=== PATIENT | female | born 1965 | race Caucasian/White ===

== ENCOUNTER 2022-03-22 00:18 | Emergency (ER) | payer MEDICAID ==
[~2022-03-22] VITALS: Ht 172.7 cm; Wt 109.5 kg
[~2022-03-22 00:18] MED LIST: LOPE-232 PO
[2022-03-22] MEDS ORDERED: HYDROCODONE/ACETAMINOPHEN 5-325 MG TABLET PO ONE (03:45)
[2022-03-22] MEDS ORDERED: KETOROLAC TROMETHAMINE 60 MG/2 ML VIAL IM ONE (03:45)
[2022-03-22] MEDS ORDERED: IBUP-1554 PO (06:21)
[2022-03-22] MEDS ORDERED: HYDR-4723 PO (06:21)
[2022-03-22 06:27] VITALS: BP 133/74
== END 2022-03-22 06:30 | disposition home or self-care (01) ==
LOC: EMS 00:18
DX: S20.211A Contusion of right front wall of thorax, initial encounter (principal); F17.210 Nicotine dependence, cigarettes, uncomplicated; Z88.0 Allergy status to penicillin; Z88.5 Allergy status to narcotic agent; Z98.890 Other specified postprocedural states; X58.XXXA Exposure to other specified factors, initial encounter; Y93.89 Activity, other specified; Y92.89 Other specified places as the place of occurrence of the external cause; Y99.8 Other external cause status
CPT/HCPCS: 99283; 71101; 96372; J1885